=== PATIENT | male | born 1960 | race Caucasian/White ===

== ENCOUNTER 2020-01-19 16:23 | Inpatient (IN) | payer OTHER ==
[~2020-01-19 16:23] MED LIST: Iopamidol-370 76% 500 ML 1 ML ONE
[2020-01-19] MEDS ORDERED: Fentanyl 100 MCG/2 ML VIAL ONE (16:33)
[2020-01-19 16:43] LABS: #Basophils 0.1 thou/uL (0.0-0.2); #Eosinphils 0.1 thou/uL (0.0-0.7); #Lymphocytes 2.3 thou/uL (1.20-3.40); #Monocytes 0.6 thou/uL (0.11-0.59); #Neutrophils 6.9 thou/uL (1.40-6.50); %Basophils 0.9 % (0.0-1.0); %Lymphocytes 22.9 % (21.0-51.0); %Monocytes 5.7 % (0.0-10.0); %Neutrophils 69.5 % (42.0-75.0); Hemoglobin 15.8 g/dL (14.0-18.0); Mean Corpuscular HGB CONC 34.1 g/dL (32.0-36.0); Mean Corpuscular Hemoglobin 31.7 pg (27.0-31.0); Mean Corpuscular Volume 93.1 fL (78.0-98.0); Mean Platelet Volume 7.2 fL (7.4-10.4); Platelet Count 268 thou/uL (130-400); RBC Distribution Width 12.2 % (11.5-14.5); Red Blood Cell (RBC) Count 4.97 mill/uL (4.70-6.10); White Blood Cell (WBC) Count 9.9 thou/uL (4.8-10.8)
[2020-01-19 16:48] LABS: INR-International Normal Ratio 0.9; PTT 26.5 sec (22.9-36.1); Prothrombin Time 12.4 sec (12.0-14.7)
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
[2020-01-19 16:57] LABS: ALT (SGPT) 16 U/L (8-55); AST (SGOT) 22 U/L (5-34); Albumin 4.2 g/dL (3.4-4.8); Alcohol Less than 10 mg/dL (Less than 10); Alkaline Phosphatase 40 U/L (40-110); Anion Gap 14 mmol/L (10-20); BUN (Urea Nitrogen) 17 mg/dL (8.4-25.7); Bilirubin, Total 0.4 mg/dL (0.2-1.2); Calc. Creatinine Clearance 0 mL/min (70-130); Carbon Dioxide 25 mmol/L (23-31); Chloride 104 mmol/L (98-107); Estimated GFR-MDRD 81; Globulin 2.2 g/dL (2.4-3.5); Glucose 134 mg/dL (80-115); Lipase 23 U/L (8-78); Potassium 3.6 mmol/L (3.5-5.1); Protein, Total 6.4 g/dL (5.8-8.1); Sodium 139 mmol/L (136-145)
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
[2020-01-19] MEDS ORDERED: Morphine 2 MG/ML VIAL SLOW IVP PRN (18:36)
[2020-01-19] MEDS ORDERED: Dextrose 50% Abboject 50 ML SYRINGE SLOW IVP PRN (18:36)
[2020-01-19] MEDS ORDERED: Ondansetron PF 4 MG/2 ML Vial IVP PRN (18:36)
[2020-01-19] MEDS ORDERED: Dextrose 5% in Water 1,000 ML IV PRN (18:36)
[2020-01-19] MEDS ORDERED: Rib Fracture Protocol IV SCH (18:45)
[2020-01-19] MEDS ORDERED: Morphine 4 MG/ML VIAL ONE (18:49)
[2020-01-19] MEDS ORDERED: Morphine 4 MG/ML VIAL SLOW IVP SCH (19:00)
[2020-01-19] MEDS ORDERED: Ondansetron PF 4 MG/2 ML Vial IVP SCH (19:00)
--- NOTE | 2020-01-19 19:00 | RAD ---
XR Chest 1 View Portable History: Pneumothorax Comparison: CT same day Findings: Multiple left-sided rib fractures and left fibular fracture without significant further dis placement. Small left apical pneumothorax although the majority of the distal anterior basilar. Impression: Majority left-sided pneumothorax is still anterior and basilar with only a small apical c omponent appreciated.
--- NOTE | 2020-01-19 19:09 | RAD ---
XR Shoulder Lt 3 View STANDARD History: Pain Comparison: None. Findings: Mildly comminuted left distal clavicular fracture at and medial to the coracoid. Left-sided rib fractures. Small volume left subcutaneous emphysema and left pneumothorax. Impression: Left distal clavicular fracture at and medial to the coracoid.
[2020-01-19] MEDS ORDERED: Boostrix 0.5 ML VIAL ONE (19:33)
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
[2020-01-19 20:31] LABS: Bacteria/HPF None Seen HPF (None Seen); Bilirubin Negative (Negative); Blood, Urine Trace (Negative); Clarity Clear (Clear); Glucose, Urine (Dipstick) Normal (Negative); Ketone, Urine 20 mg/dL (Negative); Leukocyte Negative Leu/uL (Negative); Nitrite Negative (Negative); Protein, Urine (Dipstick) Negative (Neg-Trace); RBC/HPF 0-3 HPF (0-3); Squamous Epithelial None Seen HPF (0-3); Urobilinogen Normal mg/dL (Less than 2); WBC/HPF 0-3 HPF (0-3); pH, Urine 5.5 (5.0-9.0)
[2020-01-19 20:32] LABS: Specific Gravity, Urine Greater than 1.060 (1.002-1.036)
[2020-01-19] MEDS: Famotidine 20 MG TAB PO SCH (22:10)
[2020-01-19 23:40] VITALS: BMI 23.6
[2020-01-19] MEDS ORDERED: Acetaminophen 650 MG Suppository PR SCH (23:59)
[2020-01-20] MEDS: Ketorolac Tromethamine 30 MG/ML VIAL IVP SCH ×2 (03:04→04:53)
[2020-01-20] MEDS ORDERED: HYDROcodone/Acetaminophen 10/325 mg Tablet PO SCH (04:45)
[2020-01-20 06:07] LABS: #Basophils 0.1 thou/uL (0.0-0.2); #Eosinphils 0.1 thou/uL (0.0-0.7); #Lymphocytes 2.4 thou/uL (1.20-3.40); #Monocytes 0.9 thou/uL (0.11-0.59); #Neutrophils 6.8 thou/uL (1.40-6.50); %Basophils 0.7 % (0.0-1.0); %Eosinophils 1.1 % (0.0-10.0); %Lymphocytes 23.7 % (21.0-51.0); %Monocytes 8.3 % (0.0-10.0); %Neutrophils 66.2 % (42.0-75.0); Mean Corpuscular HGB CONC 32.5 g/dL (32.0-36.0); Mean Corpuscular Hemoglobin 30.6 pg (27.0-31.0); Mean Platelet Volume 7.6 fL (7.4-10.4); Platelet Count 226 thou/uL (130-400); RBC Distribution Width 12.2 % (11.5-14.5); Red Blood Cell (RBC) Count 4.56 mill/uL (4.70-6.10); White Blood Cell (WBC) Count 10.2 thou/uL (4.8-10.8)
[2020-01-20] MEDS: traMADol HCl 50 MG TAB PO SCH ×4 (06:10→23:27)
[2020-01-20] MEDS: Acetaminophen 325 MG TAB PO SCH ×4 (06:11→23:27)
[2020-01-20 06:32] LABS: Anion Gap 10 mmol/L (10-20); BUN (Urea Nitrogen) 13 mg/dL (8.4-25.7); Calc. Creatinine Clearance 107 mL/min (70-130); Calcium 8.3 mg/dL (7.8-10.44); Carbon Dioxide 27 mmol/L (23-31); Chloride 105 mmol/L (98-107); Estimated GFR-MDRD Greater than 90; Glucose 113 mg/dL (80-115); Magnesium 2.1 mg/dL (1.6-2.6); Phosphorus 3.5 mg/dL (2.3-4.7); Potassium 3.8 mmol/L (3.5-5.1); Sodium 138 mmol/L (136-145)
[2020-01-20] MEDS ORDERED: traMADol HCl 50 MG TAB PO PRN (08:39)
[2020-01-20] MEDS ORDERED: HYDROcodone/Acetaminophen 5/325 mg Tablet PO PRN (08:39)
[2020-01-20] MEDS: Famotidine 20 MG TAB PO SCH ×2 (09:16→21:30)
[2020-01-20] MEDS: Gabapentin 300 MG CAP PO SCH ×2 (09:17→21:30)
[2020-01-20] MEDS: Ibuprofen 200 MG TAB PO SCH ×4 (09:17→21:30)
[2020-01-20] MEDS ORDERED: Ibuprofen 200 MG TAB PO SCH (09:30)
--- NOTE | 2020-01-20 10:31 | RAD ---
CHEST 1 VIEW PORTABLE: HISTORY: Followup pneumothorax. Left clavicle fracture and left rib fractures are noted. Possible very small residual anterior left- sided pneumothorax. Less inspiration. Minimal bibasilar pleural and parenchymal opacity changes. IMPRESSION: Possible small residual anterior left-sided pneumothorax. Less inspiration. Minimal increased heather ngs in the bases. Continue short-term followup. Very small anterior residual pneumothorax. IMPRESSION: Probable small residual anterior pneumothorax, but no significant new process. POS: OFF
[2020-01-20 12:26] LABS: SARS-CoV-2 MS2 Positive; SARS-CoV-2 N Gene Negative; SARS-CoV-2 S Gene Negative; SARS-CoV-2 by NAA Not Detected (NotDetected); SARS-CoV-2 orf1ab Negative
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
[2020-01-20] MEDS ORDERED: Enoxaparin Sodium 40 MG/0.4 ML SYRINGE SC SCH (21:00)
[2020-01-21] MEDS: Ibuprofen 200 MG TAB PO SCH ×2 (02:58→08:24)
[2020-01-21] MEDS: traMADol HCl 50 MG TAB PO SCH ×2 (05:11→12:52)
[2020-01-21] MEDS: Acetaminophen 325 MG TAB PO SCH ×2 (05:11→12:52)
--- NOTE | 2020-01-21 08:08 | RAD ---
Chest one view HISTORY: Pneumothorax. Follow-up. COMPARISON: 01/20/2020 and 01/19/2020. Cardiac silhouette is magnified by projection. Pulmonary vasculature is unremarkable. Mediastinum is midline. Small left apical pneumothorax is similar in appearance to the previous exams . Mild bibasilar atelectasis is stable. Left rib and clavicle fractures again demonstrated. Right lung well-inflated. IMPRESSION : Small left apical pneumothorax and other findings are stable.
[2020-01-21] MEDS: Famotidine 20 MG TAB PO SCH (08:23)
[2020-01-21] MEDS: Gabapentin 300 MG CAP PO SCH (08:24)
[2020-01-21 12:16] VITALS: BP 112/70; TEMP 97.8
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
== END 2020-01-21 14:40 | disposition home or self-care (01) | DRG 200 ==
LOC: ERS 16:23 → SURG B 18:42
PROVIDERS: ADMIT Surgery; ATTEND Surgery
DX: S27.2XXA Traumatic hemopneumothorax, initial encounter (principal); S22.41XA Multiple fractures of ribs, right side, initial encounter for closed fracture; S42.002A Fracture of unspecified part of left clavicle, initial encounter for closed fracture; Z88.0 Allergy status to penicillin; Z98.890 Other specified postprocedural states; J44.9 Chronic obstructive pulmonary disease, unspecified; Z20.828 Contact with and (suspected) exposure to other viral communicable diseases; V89.2XXA Person injured in unspecified motor-vehicle accident, traffic, initial encounter
CPT/HCPCS: 36415; 70450; 71045; 71260; 72125; 72170; 74177; 80048; 80053; 80307; 81003; 81015; 83605; 83690; 83735; 84100; 85025; 85610; 85730; 86850; 86900; 86901; 87635; 90471; 90715; 93005; 94640; 96361; 96374; 96375; G0390; J1650; J1885; J2270; J3010; J7620; Q9967; U0003